=== PATIENT | female | born 1940 | race Caucasian/White ===

== ENCOUNTER 2016-04-19 11:41 | Day surgery (SDC) | payer MEDICARE ==
[~2016-04-19] VITALS: Ht 165.1 cm; Wt 72.0 kg
[~2016-04-19 11:41] MED LIST: CA C1TAB88 PO; CLOB15CR3 TOP; COD1CAPS16 PO; CYCL5TAB PO; IBUP200C PO; LIDO5O TOP; MULT-1073 PO; PRAV20TA2 PO; fentaNYL-PF 50 mCg/mL 2 mL Inj IVPUSH PRN; lysine
[2016-04-19 12:24] VITALS: BP 152/100; PULSE 98; RESP 16; O2SAT 96
[2016-04-19 13:40] VITALS: BP 119/69; PULSE 76; RESP 16; O2SAT 97
[2016-04-19 13:50] VITALS: BP 117/66; PULSE 73; RESP 16; O2SAT 97
--- NOTE | 2016-04-19 20:11 | ENDO ---
[address] [address] ENDOSCOPY PROCEDURE PATIENT: TJ RIVERA : 1940 MR#: [id number] ADMIT: 04/19/2016 JOB ID: [id number] DATE: 04/19/2016 PRIMARY CARE PHYSICIAN: TORI Juan. PROCEDURE: Screening colonoscopy. INDICATION: The patient is a 75-year-old female whose last screening colonoscopy was over 10 years ago. EQUIPMENT: [facility] H180 AL. SEDATION: 1. Versed 8 mg. 2. Fentanyl 175 mcg. PREPARATION QUALITY: Good. COMPLICATIONS: None identified. PROCEDURAL INFORMATION: The patient was brought into the endoscopy suite and placed in the left lateral decubitus position. Sedation was achieved using the above-stated medications with the addition of oxygen administered via nasal cannula. Digital rectal exam was performed and unremarkable. The scope was then introduced through the anus and advanced under direct visualization through to the cecum. The appendiceal orifice and ileocecal valve were both identified and photographed. The ileocecal valve was intubated and the terminal ileum photographed. Preparation quality was good. She had scattered diverticula throughout her colon. The scope was then slowly withdrawn, carefully examining the mucosa for any defects or polyps. Retroflexed views were attempted in the rectum but were unable to be accomplished. The patient tolerated the entire procedure without evident complication. FINDINGS: Scattered diverticulosis. RECOMMENDATIONS: Given the patient's age and normal colonoscopy, I do not recommend further screening colonoscopies.
== END 2016-04-19 23:59 | disposition home or self-care (01) ==
LOC: END 11:41
PROVIDERS: ATTEND General Practice
DX: Z12.11 Encounter for screening for malignant neoplasm of colon (principal); K57.30 Diverticulosis of large intestine without perforation or abscess without bleeding; R19.4 Change in bowel habit; M51.36 Other intervertebral disc degeneration, lumbar region; Z85.828 Personal history of other malignant neoplasm of skin
CPT/HCPCS: 99153; G0121; G0500; J2250; J3010; J7030